=== PATIENT | female | born 1980 | race Caucasian/White ===

== ENCOUNTER → 2017-04-01 | Outpatient (REF) ==
[~2017-04-01] MED LIST: MOTRIN 600600 MG/TAB PO; PERCOCET 325 MG1 TA2 PO; PRENATAL1 TA1 PO; PRILOSEC 20MG20 MG PO; VALTREX1 GM PO
== END ==
LOC: WSOH 08:45
DX: Z02.89 Encounter for other administrative examinations (principal)

== ENCOUNTER 2019-06-24 12:38 | Observation (INO) | payer OTHER ==
[2019-06-24] VITALS (8 sets, daily range): BP systolic 116–135; BP diastolic 68–93; PULSE 70–88; TEMP 98.4
[~2019-06-24] VITALS: Ht 170.2 cm; Wt 100.0 kg
[2019-06-24 13:21] LABS: BASO # 0.1 (0.0-0.2); BASO % 0.3 % (0.0-2.0); EOS # 0.1 (0.0-0.7); EOS % 0.4 % (0-4.0); GRAN # 13.8 (1.4-6.5); GRAN % 83.6 % (42.2-75.2); HEMATOCRIT 40.3 % (37.0-47.0); HEMOGLOBIN 13.3 g/dl (12.5-16.0); LYMPH # 1.8 (1.2-3.4); MEAN CELL VOLUME 83 fl (80.0-100.0); MEAN CORPUSCULAR HEMOGLOBIN 27 pg (27.0-31.0); MEAN CORPUSCULAR HGB CONC 33 g/dl (33.0-37.0); MONO # 0.7 (0.1-0.6); MONO % 4.3 % (1.7-9.3); PLATELET COUNT 436 K/mm3 (130-400); RED BLOOD COUNT 4.85 M/mm3 (4.10-5.30); REDCELL DISTRIBUTION WIDTH-CV 14.4 % (11.5-14.5)
[2019-06-24 13:30] LABS: COLLECTION METHOD CLEAN CATCH
[2019-06-24 13:30] LABS: ALBUMIN 4.2 gm/dL (3.5-5.0); BILIRUBIN,TOTAL 0.6 mg/dL (0.0-1.0); C-REACTIVE PROTEIN 3.7 mg/dL (0.0-0.9); CALCIUM 9.3 mg/dL (8.4-10.2); CREATININE, serum 0.69 (0.52-1.25); POTASSIUM 4.1 mmol/L (3.4-5.0); TOTAL PROTEIN 8.1 gm/dL (6.4-8.2)
[2019-06-24 13:51] LABS: MUCOUS Present /lpf; PH 6 (5-8); SQUAMOUS EPITHELIAL 0-2 /hpf; URINE APPEARANCE Clear; URINE BACTERIA None Seen /hpf; URINE BILIRUBIN Negative (NEGATIVE); URINE BLOOD Negative (NEGATIVE); URINE COLOR Yellow; URINE GLUCOSE Negative (NEGATIVE); URINE KETONE Negative (NEGATIVE); URINE LEUKOCYTE ESTERASE Negative (NEGATIVE); URINE NITRATE Negative (NEGATIVE); URINE PROTEIN(semi-quant) Negative (NEGATIVE); URINE RBC 0-2 /hpf; URINE UROBILINOGEN Negative (NEGATIVE)
[2019-06-24] MEDS ORDERED: PERCOCET 325 MG1 TA2 PO (18:04)
[2019-06-24] MEDS ORDERED: MOTRIN 600600 MG/TAB PO (18:05)
--- NOTE | 2019-06-24 18:40 | NUR ---
PATIENT IS A&O. VSS. RATES PAIN AT 2/10. ABDOMINAL LAP SITES CD&I WITH SWIFTSET CLOSURE. A&P LUNG ROTH NOTED SOME WHEEZING, PATIENT REPORTS RECENTLY BEING SICK. HEAD TO TOE WNL. PATIENT AMBULTED TO BATHROOM TO VOID. FAMILY AT BEDSIDE. LIPSTICK MOLDER TAKING OVER.
--- NOTE | 2019-06-24 23:23 | NUR ---
PATIENT DOING WELL TONIGHT. HAS BEEN UP AMBULATING IN HALLS SEVERAL TIMES. TOLERATED PO FOOD AND FLUIDS. DENIES NAUSEA. X3 LAP SITES TO ABD CDI AND OPEN TO AIR. STATES SHE IS HAVING MODERATE PAIN. PRN PERCOCET GIVEN. VSS. NO FURTHER NEEDS AT THIS TIME. WILL CONTINUE TO MONITOR.
[2019-06-25 03:12] VITALS: BP 149/73; PULSE 82; TEMP 97.7
[2019-06-25 07:37] VITALS: BP 115/69; PULSE 87; TEMP 98.3
--- NOTE | 2019-06-25 08:29 | NUR ---
Pt doing very well. Alert and oriented with VSS. Ambulating in room and in hallway. Tolerating general diet fine. C/o minimal pain at incision sites. 3 abd sites CD&I. Pt has no complaints at this time. Call light within reach, will continue to monitor
[2019-06-25] MEDS ORDERED: Work Release (11:17)
[2019-06-25 11:22] VITALS: BP 133/75; PULSE 78; TEMP 98.1
--- NOTE | 2019-06-25 14:44 | NUR ---
Senior Treasury Analyst met with patient to discuss discharge planning. Patient lives in [place] and is employed at [employer]. Patient sees Dr. Gaines for primary care and obtains medications from [facility] with no difficulty. Patient has DPOA-HC although reports paperwork is located at home. Patient will return home upon discharge.
== END 2019-06-25 12:14 | disposition home or self-care (01) ==
LOC: COL.ER 12:38 → SDCO 15:16 → SURG 15:17 → SDCO 15:17 → SURG 16:24
PROVIDERS: Nurse Practitioner; ADMIT Surgery
DX: K35.80 Unspecified acute appendicitis (principal); Z87.891 Personal history of nicotine dependence; Z88.8 Allergy status to other drugs, medicaments and biological substances
CPT/HCPCS: OP; G0378; G0379; J0330; J0744; J1100; J1885; J2405; J2704; J2710; J3010; J7030; J7120; Q9967